=== PATIENT | female | born 1940 | race Caucasian/White ===

== ENCOUNTER 2017-07-13 19:44 | Emergency (ER) | payer OTHER ==
--- NOTE | 2017-07-13 19:56 | EDPHY ---
H & P HPI/ROS: HPI CHIEF COMPLAINT: Left shoulder injury. HISTORY OF PRESENT ILLNESS: This patient is a 76-year-old female, she has significant past medical history for hypertension, hyperlipidemia, peripheral vascular disease on Plavix, osteoporosis, arthritis, presents to the emergency room after she fell in struck her left shoulder. She now has left lateral shoulder pain. She was drinking this evening. She states she may have had more than 2 margaritas. She denies being drunk her intoxicated. Her daughter in laws at bedside reports that she drank a lot this evening. This is what contributed to her fall. She denies any other areas of injury or pain. Denies head strike or neck pain. Denies headache. Denies nausea vomiting. Main complaint is left lateral shoulder pain worse with range of motion. Past Medical History: Hypertension, hyperlipidemia, peripheral vascular disease , osteoporosis, arthritis Past Surgical History: Right hip surgery. Social History: Smokes tobacco, occasional alcohol use. No illicit drugs. Daughter in-law bedside. Family History: Noncontributory ROS REVIEW OF SYSTEMS: A comprehensive 10 point review of systems is otherwise negative aside from elements mentioned in the history of present illness. Exam Constitutional smells of alcohol, smells of tobacco, triage nursing summary reviewed, vital signs reviewed, awake/alert. Eyes normal conjunctivae and sclera, EOMI, PERRLA. HENT normal inspection, atraumatic, moist mucus membranes, no epistaxis, neck supple/ no meningismus, no raccoon eyes. Respiratory clear to auscultation bilaterally, normal breath sounds, no respiratory distress, no wheezing. Cardiovascular rate normal, regular rhythm, no murmur, no edema, distal pulses normal. Gastrointestinal soft, non-tender, no rebound, no guarding, normal bowel sounds, no distension, no pulsatile mass. Genitourinary no CVA tenderness. Musculoskeletal left upper extremity; tender palpation over the left lateral shoulder. With range of motion pain is present. Distally she is neurovascular intact. Good radial pulse. Good cap refill. Full range of motion of the elbow and wrist and hand. Sensation intact. Axillary nerve intact. Swelling noted to the left shoulder., no calf swelling, no tenderness of extremities, no meningismus, good pulses, neurovascularly intact. Skin pink, warm, & dry, no rash, skin atraumatic. Neurologic awake, alert and oriented x 3, AAOx3, moves all 4 extremities equally, motor intact, sensory intact, CN II-XII intact, normal cerebellar, normal vision, normal speech. Psychiatric normal mood/affect. Heme/Lymph/Immune no lymphadenopathy. Differential Diagnosis: Includes but is not limited to in a particular order shoulder contusion, shoulder dislocation, fracture, humeral neck fracture, humerus fracture, shoulder fracture. Medical Decision Making: plan for this patient x-ray left shoulder, no pain medicine at this time as she is intoxicated. Re-evaluation: 2043: X-ray reviewed of the left shoulder. This shows a comminuted left humeral neck fracture. Her left arm is neurovascular intact. She be placed in a sling. Pain control. Recommend close orthopedic follow-up. Return emergency room if there is worsening pain swelling fever questions or concerns she understands. I went over the x-ray with her and her daughter in-law bedside. Source: Patient - Personal History Tetanus Vaccine Date: unsure but advised by PCP not needed currently - Medical/Surgical History Hx Asthma: No Hx Chronic Respiratory Disease: No Hx Diabetes: No Hx Cardiac Disease: No Hx Renal Disease: No Hx Cirrhosis: No Hx Alcoholism: No Hx HIV/AIDS: No Hx Splenectomy or Spleen Trauma: No Other PMH: s/p bilat cataract surgery and s/p biat tubal ligation surgery. s/p rib fractures - Social History Smoking Status: Former smoker Constitutional: Initial Vital Signs Temperature (C) 36.1 C 07/13/17 20:06 Heart Rate 111 H 07/13/17 20:06 Respiratory Rate 18 07/13/17 20:06 Blood Pressure 167/97 H 07/13/17 20:06 O2 Sat (%) 91 L 07/13/17 20:06 O2 Delivery Mode Room Air Allergies/Adverse Reactions: No Known Allergies Allergy (Verified 07/13/17 20:06) Home Medications: Medication Instructions Recorded Aspirin [Aspirin 325 mg (OTC)] 325 mg PO DAILY 08/29/13 Lisinopril/Hydrochlorothiazide 20.25 tab PO DAILY 08/29/13 [Lisinopril-Hctz 20-25 mg Tab] Naproxen Sodium [Aleve] 220 mg PO DAILY PRN 08/29/13 Vit27&Calcium/Iron/FA 1 tab PO DAILY 08/29/13 [ Rx 1 Tablet (RX)] Atorvastatin Calcium [Lipitor 40 40 mg PO DAILY 10/02/13 mg (RX)] Calcium Citrate W/Vit D [Citracal 630 mg PO DAILY 10/02/13 + D (OTC)] Clopidogrel Bisulfate [Clopidogrel] 75 mg PO DAILY 10/02/13 Medical Decision Making - Diagnostics Imaging Results: Imaging Impressions Shoulder X-Ray 07/13/17 19:59 Impression: Comminuted fracture of the surgical neck of the left humerus, with some positional deformity. Departure - Departure Disposition: Home, Routine, Self-Care Clinical Impression: Shoulder fracture Qualifiers: Encounter type: initial encounter Fracture type: closed Laterality: left Qualified Code(s): S42.92XA - Fracture of left shoulder girdle, part unspecified , initial encounter for closed fracture Condition: Good Instructions: Arm Fracture in Adults (ED) Additional Instructions: 1. Ice your arm. 2. Take anti-inflammatory pain medicine. 3. Sling for comfort. Please follow up with Orthopedics. Referrals: Jackie Hussein MD [Primary Care Provider] - As per Instructions Jose James MD [Medical Doctor] - As per Instructions
[2017-07-13 20:08] VITALS: RESP 18; TEMP 97
[2017-07-13] MEDS ORDERED: HYDROCOD/APAP 5/325 PREPACK#6 BTL TAKEHOME ONE (21:00)
[2017-07-13 21:12] VITALS: BP 159/87; PULSE 89; O2SAT 92
== END 2017-07-13 21:12 | disposition home or self-care (01) ==
LOC: CED 19:44
DX: S42.212A Unspecified displaced fracture of surgical neck of left humerus, initial encounter for closed fracture (principal); I10 Essential (primary) hypertension; Z79.82 Long term (current) use of aspirin; Z87.891 Personal history of nicotine dependence; W19.XXXA Unspecified fall, initial encounter
CPT/HCPCS: 73030-PO

== ENCOUNTER → 2017-10-26 | Outpatient (CLI) | payer OTHER | LOC: BRMIMAGING 13:33 | PROVIDERS: ATTEND Internal Medicine | DX: Z12.31 Encounter for screening mammogram for malignant neoplasm of breast (principal); Z80.3 Family history of malignant neoplasm of breast ==

== ENCOUNTER → 2018-01-28 | Outpatient (CLI) | payer OTHER ==
[~2018-01-28] MED LIST: IOPAMIDOL (ISOVUE 370) 100 ML BTL IV ONE
== END ==
LOC: CIMAGING 12:57
PROVIDERS: ATTEND Internal Medicine Cardiovascular Disease
DX: I70.203 Unspecified atherosclerosis of native arteries of extremities, bilateral legs (principal); N26.1 Atrophy of kidney (terminal); I86.2 Pelvic varices
CPT/HCPCS: 75635; Q9967; 82565-PO

== ENCOUNTER 2018-03-12 10:04 | Inpatient (IN) | payer OTHER ==
--- NOTE | 2018-03-12 09:34 | PDHPUP ---
History & Physical Update H&P update statement: This history and physical update is based on an assessment of the patient which was completed after admission or registration (within 24 hours), but prior to the surgery/procedure. H&P update: H&P reviewed & patient examined, no change in patient's condition since H&P completed
[2018-03-12] MEDS ORDERED: ceFAZolin 2 GM/SWFI 2 GM/20 ML SYR IVP ONE (10:21)
[2018-03-12] MEDS ORDERED: LR 1,000 ML IV ONE (10:23)
[2018-03-12] MEDS ORDERED: ceFAZolin 2 GM/DEXTROSE 100 ML IV ONE (10:30)
[2018-03-12] MEDS ORDERED: BUPIVACAINE 0.5% 30 ML SDV ONE (10:57)
[2018-03-12] MEDS ORDERED: PAPAVERINE HCL 60 MG/2 ML SDV ONE (10:58)
[2018-03-12] MEDS ORDERED: IOTHALAMATE MEG (CONRAY) 50 ML VIAL IV ONE (10:59)
--- NOTE | 2018-03-12 11:09 | PDANEPAE ---
ANE History of Present Illness iliac endarterectomy ANE Past Medical History - Cardiovascular History Hx Hypertension: Yes Hx Arrhythmias: No Hx Chest Pain: No Hx Coronary Artery / Peripheral Vascular Disease: Yes Hx CHF / Valvular Disease: No Hx Palpitations: No Cardiovascular History Comment: PVD/PAD. stents-peripheral - Pulmonary History Hx COPD: No Hx Asthma/Reactive Airway Disease: No Hx Recent Upper Respiratory Infection: No Hx Oxygen in Use at Home: No Hx Sleep Apnea: No Sleep Apnea Screening Result - Last Documented: Negative Pulmonary History Comment: fx R ribs 09/24 - Neurologic History Hx Cerebrovascular Accident: No Hx Seizures: No Hx Dementia: No - Endocrine History Hx Diabetes: No - Renal History Hx Renal Disorders: No Renal History Comment: urinary urgency&incontinence - Liver History Hx Hepatic Disorders: No - Neurological & Psychiatric Hx Hx Neurological and Psychiatric Disorders: Yes Neurological / Psychiatric History Comment: 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 TEETH IMPLANTS - Chronic Pain History Chronic Pain: No - Surgical History Prior Surgeries: peripheral vascular stents 2007&08/27. Tubal ligation 1982. bilateral cataract surg 2010. left chip tuner. audrey ANE Review of Systems Review of Systems: - Exercise capacity METS (RN): 4 METS ANE Patient History - Allergies Allergies/Adverse Reactions: No Known Allergies Allergy (Verified 02/26/18 11:38) - Home Medications Home medications: home medication list seen and reviewed Home Medications: Aspirin [Aspirin 325 mg (OTC)] 325 mg PO DAILY 08/29/13 [Last Taken 03/05/18] Lisinopril/Hydrochlorothiazide [Lisinopril-Hctz 20-25 mg Tab] 20.25 tab PO DAILY 08/29/13 [Last Taken 03/11/18] Naproxen Sodium [Aleve] 220 mg PO DAILY PRN 08/29/13 [Last Taken 03/05/18] Vit27&Calcium/Iron/FA [ Rx 1 Tablet (RX)] 1 tab PO DAILY [Last Taken 03/05/18] Atorvastatin Calcium [Lipitor 40 mg (RX)] 40 mg PO DAILY 10/02/13 [Last Taken ] Calcium Citrate W/Vit D [Citracal + D (OTC)] 630 mg PO DAILY 10/02/13 [Last Taken 03/05/18] Clopidogrel Bisulfate [Clopidogrel] 75 mg PO DAILY 10/02/13 [Last Taken 03/11/18 ] - NPO status NPO Since - Liquids (Date): 03/11/18 NPO Since - Liquids (Time): 20:00 NPO Since - Solids (Date): 03/11/18 NPO Since - Solids (Time): 20:00 - Anes Hx Anes Hx: no prior problems - Smoking Hx Smoking Status: Former smoker - Alcohol Use Alcohol Use: Rarely - Family Anes Hx Family Anes Hx: none Family Hx Anesthesia Complications: none ANE Labs/Vital Signs - Vital Signs Blood Pressure: 141/64 Heart Rate: 80 Respiratory Rate: 18 O2 Sat (%): 91 Height: 160.02 cm Weight: 70.76 kg ANE Physical Exam - Airway Neck exam: FROM Mallampati Score: Class 2 Mouth exam: normal dental/mouth exam - Pulmonary Pulmonary: no respiratory distress, clear to auscultation - Cardiovascular Cardiovascular: regular rate and rhythym, no murmur, rub, or gallop - ASA Status ASA Status: III ANE Anesthesia Plan Anesthesia Plan: general endotracheal anesthesia Lines/Monitors: arterial line
[2018-03-12] MEDS ORDERED: fentaNYL 100 MCG/2 ML INJ ONE ×2 (11:26→13:34)
[2018-03-12] MEDS ORDERED: PROPOFOL 200 MG/20 ML VIAL ONE (11:27)
[2018-03-12] MEDS ORDERED: ROCURONIUM 50 MG/5 ML VIAL ONE ×2 (11:27→13:08)
[2018-03-12] MEDS ORDERED: LIDOCAINE 2% 100 MG/5 ML SYR ONE (11:27)
[2018-03-12] MEDS ORDERED: PHENYLEPHRINE HCL 100 MCG/ML SYR ONE ×2 (12:08)
[2018-03-12] MEDS ORDERED: DEXAMETHASONE 4 MG/ML VIAL ONE (12:12)
[2018-03-12] MEDS ORDERED: ONDANSETRON 4 MG/2 ML VIAL ONE (12:12)
[2018-03-12] MEDS ORDERED: THROMBIN (BOVINE) 20,000 UNIT SPRAY TP ONE (13:00)
[2018-03-12] MEDS ORDERED: PROTAMINE SULFATE 50 MG/5 ML VIAL IVP ONE (13:22)
[2018-03-12] MEDS ORDERED: SUGAMMADEX SODIUM 200 MG/2 ML VIAL IVP ONE (13:31)
--- NOTE | 2018-03-12 13:40 | POSTOPPROG ---
Post Op Note Date of Operation: 03/12/18 Surgeon: Pete Chavez [employer] Equipment Hay Sorter: Anna Marcelo Anesthesiologist: Rell Ly Anesthesia: GET(General Endotracheal) Pre-op Diagnosis: PAD c R iliofemoral stenosis and RLE claudication Post-op Diagnosis: same Procedure: iliofemoral endartectomy with patch closure Findings: irregular calcified plaque Inf/Abcess present in the surg proc area at time of surgery?: No EBL: 50-100 Complications: none Specimen(s): plaque to pathology
[2018-03-12] MEDS ORDERED: ONDANSETRON 4 MG/2 ML VIAL IVP PRN ×2 (13:43→13:45)
[2018-03-12] MEDS ORDERED: ACETAMINOPHEN 325 MG TAB PO PRN (13:43)
[2018-03-12] MEDS ORDERED: HYDROmorphONE/DILAUDID 1 MG/ML INJ IVP PRN (13:43)
[2018-03-12] MEDS ORDERED: PROMETHAZINE HCL 25 MG/ML INJ IVP PRN (13:45)
[2018-03-12] MEDS ORDERED: NALOXONE HCL 0.4 MG/ML INJ IVP PRN (13:45)
[2018-03-12] MEDS ORDERED: HYDROmorphONE/DILAUDID 2 MG/ML INJ IVP PRN (13:45)
[2018-03-12] MEDS ORDERED: D5W 1/2 NS W/ 20 KCl/L 1,000 ML IV SCH (13:45)
[2018-03-12] MEDS ORDERED: ACETAMINOPHEN 500 MG TAB PO PRN (13:45)
[2018-03-12] MEDS ORDERED: oxyCODONE IR 5 MG TAB PO PRN (13:45)
[2018-03-12] MEDS ORDERED: fentaNYL 100 MCG/2 ML INJ IVP PRN (13:45)
[2018-03-12] MEDS ORDERED: HYDROCODONE/APAP 5/325 TAB PO PRN (13:45)
--- NOTE | 2018-03-12 13:48 | POSTANESTH ---
Post Anesthetic Evaluation Cardiovascular Status: Normal, Stable, Similar to Pre-Op Cond Respiratory Status: Normal, Stable, Similar to Pre-op Cond. Level of Consciousness/Mental Status: Can Participate in Eval, Alert and Oriented Pain Control: Adequate, Prn Tx Ordered Nausea/Vomiting Control: Adequate, Prn Tx Ordered Complications Possibly Related to Anesthesia: None Noted
--- NOTE | 2018-03-12 16:01 | PDMN ---
Medical Necessity Medical necessity: Pt meets INPT criteria per and [facility] [place] Cardiovascular Surgery or Procedure GRG ( IPO surgery).
[2018-03-12] MEDS: OXYCODONE/APAP 5/325 TAB PO PRN ×2 (16:08→22:40)
--- NOTE | 2018-03-12 16:52 | SOAPPROG ---
SOAP Progress Note Assessment/Plan: Assessment/Plan: 77 Y F s/p ilieofemoral endarterectomy with patch closure, POD# 0. Post op check. Wounds intact. AFVSS. Pain controlled. Regular diet. Bedrest overnight. Continue hines until am. PT/OT in am. Med rec once available. Continue routine post op care on PCU. 03/12/18 16:50 Objective: Vital Signs Temp Pulse Resp BP Pulse Ox 36.7 C 72 16 157/72 H 93 03/12/18 15:58 03/12/18 15:58 03/12/18 15:58 03/12/18 15:58 03/12/18 15:58 03/11/18 03/12/18 03/13/18 05:59 05:59 05:59 Intake Total 1025 Output Total 150 Balance 875 ICD10 Worksheet Patient Problems: Problems Problem Status Onset Atherosclerotic peripheral vascular disease with intermittent claudication Acute Hyperlipidemia Acute
[2018-03-12] MEDS: DOCUSATE SODIUM 100 MG CAP PO SCH (21:00)
[2018-03-13] MEDS: OXYCODONE/APAP 5/325 TAB PO PRN ×3 (05:41→23:51)
[2018-03-13] MEDS ORDERED: NAPROXEN SODIUM 220 MG TAB PO PRN (07:48)
--- NOTE | 2018-03-13 07:52 | SOAPPROG ---
SOAP Progress Note Assessment/Plan: Assessment/Plan: 77 Y F s/p ilieofemoral endarterectomy with patch closure, POD# 1. Doing well. Restart home meds. OOB today. Bedrest lifted. PT/OT. D/c flora. Dispo: pending. possibly tomorrow but pending course. S: slept well lat night. Pain is a "1." Has been on bedrest. O: alert, nad no wob ctab anteriorly rrr abd soft wound well dressed, no shadowing feet warm. good doppler pedal pulses L>R, faintly palpable on R 03/13/18 07:50 Objective: Vital Signs Temp Pulse Resp BP Pulse Ox 36.7 C 92 12 168/76 H 90 L 03/13/18 07:18 03/13/18 07:18 03/13/18 03:33 03/13/18 07:18 03/13/18 07:18 Laboratory Results 03/13/18 03:33 03/13/18 03:33 03/12/18 03/13/18 03/14/18 05:59 05:59 05:59 Intake Total 2875 Output Total 1350 Balance 1525 ICD10 Worksheet Patient Problems: Problems Problem Status Onset Atherosclerotic peripheral vascular disease with intermittent claudication Acute Hyperlipidemia Acute
[2018-03-13] MEDS: DOCUSATE SODIUM 100 MG CAP PO SCH ×2 (10:04→20:07)
[2018-03-13] MEDS: ASPIRIN 325 MG TAB PO SCH (10:04)
[2018-03-13] MEDS: ATORVASTATIN CALCIUM 10 MG TAB PO SCH (10:04)
[2018-03-13] MEDS: CLOPIDOGREL BISULFATE 75 MG TAB PO SCH (10:04)
[2018-03-13] MEDS: PRENATAL VIT 1 EACH TAB PO SCH (10:04)
[2018-03-13] MEDS: LISINOPRIL/HCTZ 10/12.5 MG 1 EA TAB PO SCH (10:04)
--- NOTE | 2018-03-13 15:46 | ASMTCMCOM ---
CM Note CM Note Notes: 03/13/2018 Case Management Note Met with pt this afternoon. Pt was admitted for PVD claudication and subsequent ilieofemoral endartectomy. Pt lives alone but has her daughter Elle [phone] and son in law 3 blocks from her house. Her grandson and his live one block further. Her grandsons help with lawn care and snow removal. She is able to drive and has no difficulties preparing meals. Pt was living independently prior to admission. Pt plans for her daughter to take her home at d/c. Pt has prior stay at [facility] after her hip surgery in Nov 2016. She also had a home care agency but was unable to recall the name. PT is recommending home independent. Case Management d/c poc: home independent with follow up as directed. Case Management to follow. Date Signed: 03/13/2018 03:46 PM Electronically Signed By:Mely San RN
[2018-03-14] MEDS: ATORVASTATIN CALCIUM 10 MG TAB PO SCH (08:25)
[2018-03-14] MEDS: DOCUSATE SODIUM 100 MG CAP PO SCH ×2 (08:25→21:33)
[2018-03-14] MEDS: NAPROXEN SODIUM 220 MG TAB PO SCH ×2 (08:25→21:33)
[2018-03-14] MEDS: ASPIRIN 325 MG TAB PO SCH (08:25)
[2018-03-14] MEDS: PRENATAL VIT 1 EACH TAB PO SCH (08:25)
[2018-03-14] MEDS: CLOPIDOGREL BISULFATE 75 MG TAB PO SCH (08:25)
[2018-03-14] MEDS: LISINOPRIL/HCTZ 10/12.5 MG 1 EA TAB PO SCH (08:25)
[2018-03-14] MEDS: ENOXAPARIN 40 MG/0.4 ML SYR SC SCH (08:26)
--- NOTE | 2018-03-14 12:48 | SOAPPROG ---
[facility] Progress Note Assessment/Plan: Assessment: 77 y/o F s/p ilieofemoral endarterectomy with patch closure, POD#2 S: Doing well. Pain moderately well controlled. Has been oob with PT several times. Pt would like to go home tomorrow. Her daughter lives one block away from her and will be able to help her. O: Alert Afebrile RRR No increased WOB Right groin: dressing is cdi. RLE: no edema. faint pedal pulses. Plan: Will add Aleve for better pain control. Do not want to add toradol because pt is on plavix. Dispo home tomorrow. Continue walking regularly. 03/14/18 12:45 Objective: Vital Signs Temp Pulse Resp BP Pulse Ox 37.1 C 87 18 124/62 H 90 L 03/14/18 11:22 03/14/18 11:22 03/14/18 11:22 03/14/18 11:22 03/14/18 11:22 Laboratory Results 03/13/18 03:33 03/13/18 03:33 03/13/18 03/14/18 03/15/18 05:59 05:59 05:59 Intake Total 2875 1300 240 Output Total 1350 1000 750 Balance 1525 300 -510 ICD10 Worksheet Patient Problems: Problems Problem Status Onset Atherosclerotic peripheral vascular disease with intermittent claudication Acute Hyperlipidemia Acute
[2018-03-14] MEDS: OXYCODONE/APAP 5/325 TAB PO PRN (21:33)
[2018-03-15 07:28] VITALS: BP 132/65
[2018-03-15] MEDS: ASPIRIN 325 MG TAB PO SCH (08:28)
[2018-03-15] MEDS: ATORVASTATIN CALCIUM 10 MG TAB PO SCH (08:28)
[2018-03-15] MEDS: LISINOPRIL/HCTZ 10/12.5 MG 1 EA TAB PO SCH (08:28)
[2018-03-15] MEDS: PRENATAL VIT 1 EACH TAB PO SCH (08:28)
[2018-03-15] MEDS: CLOPIDOGREL BISULFATE 75 MG TAB PO SCH (08:28)
[2018-03-15] MEDS: NAPROXEN SODIUM 220 MG TAB PO SCH (08:28)
[2018-03-15] MEDS: DOCUSATE SODIUM 100 MG CAP PO SCH (08:29)
[2018-03-15] MEDS: ENOXAPARIN 40 MG/0.4 ML SYR SC SCH (08:29)
--- NOTE | 2018-03-15 08:59 | SOAPPROG ---
[facility] Progress Note Assessment/Plan: Assessment: 77 y/o F s/p ilieofemoral endarterectomy with patch closure, POD#2 S: Doing well. Pain moderately well controlled. Has been oob with PT several times. Pt would like to go home tomorrow. Her daughter lives one block away from her and will be able to help her. O: Alert Afebrile RRR No increased WOB Right groin: dressing is cdi. RLE: no edema. faint pedal pulses. Plan: Will add Aleve for better pain control. Do not want to add toradol because pt is on plavix. Dispo home tomorrow. Continue walking regularly. 03/14/18 12:45 03/15/18 08:57 Continuing to do well. Pain is well controlled today. Dressing taken down. Incision is cdi with estela in place. Faint but palpable pedal pulses. Plan for discharge home today. Dressing change prior to discharge. Follow up in our office in one week. Objective: Vital Signs Temp Pulse Resp BP Pulse Ox 36.8 C 87 15 132/65 H 92 03/15/18 07:26 03/15/18 07:26 03/15/18 07:26 03/15/18 07:26 03/15/18 07:26 Laboratory Results 03/13/18 03:33 03/13/18 03:33 03/14/18 03/15/18 03/16/18 05:59 05:59 05:59 Intake Total 1300 1640 Output Total 1000 2700 Balance 300 -1060 ICD10 Worksheet Patient Problems: Problems Problem Status Onset Atherosclerotic peripheral vascular disease with intermittent claudication Acute Hyperlipidemia Acute
--- NOTE | 2018-03-15 09:54 | ASMTCMCOM ---
CM Note CM Note Notes: Chart reviewed for discharge needs. Patient medically clear for dc today. No needs identified CM available should needs arise. Plan: Home independent. Date Signed: 03/15/2018 09:53 AM Electronically Signed By:Christina Raphael RN
--- NOTE | 2018-03-20 09:33 | CPIP ---
[f rep st] INVASIVE CARDIAC PROCEDURE DATE OF PROCEDURE: 03/14/2018 The patient was seen for arch studies status post right femoral endarterectomy. She demonstrates goo d pulsatile flow bilaterally to the metatarsal levels. Ankle-brachial index on the right is only 0.6 5, on the left is also 0.64, but she has much improved PVR tracings on the right, suggesting much imp roved inflow. She is known to have peripheral small-vessel disease. /[id number]/MODL
--- NOTE | 2018-03-22 18:23 | GDS ---
[f rep st] DISCHARGE SUMMARY DIAGNOSES: 1. Atherosclerotic peripheral vascular disease with intermittent claudication. 2. Hyperlipidemia. CONSULTATIONS: None. SPECIAL TESTS: None. PROCEDURES: Iliofemoral endarterectomy with patch closure. Intraoperative findings included irregul ar calcified plaque. HOSPITAL COURSE: This is a 77-year-old female who was admitted to the hospital for planned surgery. Her postoperative course was unremarkable. Her pain was well controlled on oral pain medications. Her vital signs remained stable. For the 1st day, she was placed on bedrest. On postop day number 2 , she ambulated with Physical Therapy and Occupational Therapy. Her incision was clean, dry, and int act. Her feet remained warm bilaterally and she had good Doppler pedal pulses left greater than righ t. The patient was placed on Plavix for anticoagulation on postop day number 2. She was discharged on March 15, 2018, in good condition. She was discharged home without home care. [place] and was able to help her. She was given Percocet for pain control and asked to continue her Pl avix and aspirin and Lipitor as well as her other home medications. She was asked to follow up in ou r office in 1 week. For accurate medication list, please see MAR. /[id number]/MODL
--- NOTE | 2018-03-23 23:59 | GOP ---
[f rep st] OPERATIVE REPORT DATE OF OPERATION: 03/12/2018 SURGEON: Pete Chavez MD HUMANITIES AND LANGUAGES PROFESSOR: TWAN Salinas ANESTHESIOLOGIST: Dr. Ly PREOPERATIVE DIAGNOSIS: Peripheral vascular disease with a right iliofemoral stenosis and a right lo wer extremity claudication. POSTOPERATIVE DIAGNOSIS: Peripheral vascular disease with a right iliofemoral stenosis and a right l ower extremity claudication. PROCEDURE PERFORMED: Iliofemoral endarterectomy with patch angioplasty. FINDINGS: The patient was found to have a thick irregular plaque in the common femoral artery obstru cting the origin of the SFA and the profunda. DESCRIPTION OF PROCEDURE: The patient was taken to the operating room, where she received satisfacto ry general endotracheal anesthesia by Dr. Ly. She was placed in the supine position, prepped and draped in the usual sterile fashion. A vertical right groin incision was made and carried down throu gh subcutaneous tissue. The common femoral, superficial femoral, and profunda femoris arteries were dissected free and controlled with vessel loops as well as several other tributary branches. After a dequate control was achieved, the vessels were occluded. The patient had been systemically hepariniz ed. A vertical incision was made in the common femoral artery extending down over the origin of the superficial femoral artery and profunda. Thick plaque was identified. This was dissected free with the endarterectomy technique until it could be completely removed. The intima at the SFA origin was tacked down posteriorly with a 7-0 Prolene suture, and the profunda femoris artery opening was freed up as well and endarterectomized. The patch graft was then placed on the artery using a Hemashield p atch. This was sutured in place with a running Hemashield 6 suture around the entire circumference o f the defect. All vessels were flushed prior to completion of the anastomosis. Flow was first start ed through the profunda femoris and then back through the superficial femoral artery. Good pulses we re achieved distally. Hemostasis was assured. Heparin was reversed with protamine. The wound was i rrigated. It was infiltrated with some 0.5% Marcaine, sprayed with some topical thrombin. The wound was then closed in layers using 2-0 Vicryl for the fascia, 3-0 Vicryl for the subcu, and skin staple s for the skin. She tolerated the procedure well. Blood loss was less than 50 cc. There were no co mplications. At completion of the procedure, she had palpable pedal pulses on the right. She tolera kelsey the procedure well, was taken to the recovery room in good condition. There were no complication s. Dequan #: [id number]/MODL
== END 2018-03-15 11:10 | disposition home or self-care (01) | DRG 254 ==
LOC: F3N 10:04 → F3E 10:04 → UNDOADMIN 10:04 → F2W 15:52
PROVIDERS: ADMIT Surgery; ATTEND Surgery
PROC: 04UK0JZ Supplement Right Femoral Artery with Synthetic Substitute, Open Approach (ICD-10-PCS; principal; 2018-03-12 11:30)
PROC: 04CK0ZZ Extirpation of Matter from Right Femoral Artery, Open Approach (ICD-10-PCS; principal; 2018-03-12 11:30)
DX: I73.9 Peripheral vascular disease, unspecified (principal); I10 Essential (primary) hypertension; R39.15 Urgency of urination; R32 Unspecified urinary incontinence; E78.5 Hyperlipidemia, unspecified
CPT/HCPCS: 97116-GP; 97161-GP; 97165-GO; 97535-GO; C1768; G8978-GP-CJ; G8979-GP-CI; G8980-GP-CI; G8987-GO-CI; G8988-GO-CI; J0690; J1100; J1644; J1650; J2001; J2370; J2405; J2440; J2704; J2720; J3010; Q9961

== ENCOUNTER → 2018-10-29 | Outpatient (CLI) | payer OTHER | LOC: BRMIMAGING 11:24 | PROVIDERS: ATTEND Internal Medicine | DX: Z12.31 Encounter for screening mammogram for malignant neoplasm of breast (principal); Z80.3 Family history of malignant neoplasm of breast ==

== ENCOUNTER → 2019-02-12 | Outpatient (CLI) | payer OTHER | LOC: FIMAGING 15:16 | PROVIDERS: ATTEND Orthopaedic Surgery | DX: S83.241A Other tear of medial meniscus, current injury, right knee, initial encounter (principal); S83.281A Other tear of lateral meniscus, current injury, right knee, initial encounter; M94.8X6 Other specified disorders of cartilage, lower leg; M25.461 Effusion, right knee ==